=== PATIENT | male | born 1960 | race Caucasian/White ===

== ENCOUNTER 2017-09-24 00:35 | Emergency (ER) | payer BC ==
--- NOTE | 2017-09-24 00:51 | EDM.PDOC ---
ED HPI GENERAL MEDICAL PROBLEM - General Chief Complaint: General Stated Complaint: Depression, anxiety, new meds, not feeling well Time Seen by Provider: 09/24/17 00:51 Source of Information: Reports: Patient, Old Records, RN, RN Notes Reviewed History Limitations: Reports: No Limitations - History of Present Illness INITIAL COMMENTS - FREE TEXT/NARRATIVE: Patient presents to the ED at [facility] concerned about current medications he is taking. Patient was started on Zoloft and Ativan 4 days ago for depression and anxiety. Patient is naive to any psych drugs. He states he "just has not been feeling well" and did have hallucination last night. He states he has been having "weird" dreams since starting the new medications. He feels nauseated and states he has not be able to sleep the last 2 nights. He also complains of bilateral finger cramping but states this has been going on for the past couple of months. Onset: Today - Related Data Allergies Allergy/AdvReac Type Severity Reaction Status Date / Time Penicillins Allergy Rash Verified 09/24/17 00:45 Home Meds: Home Meds Allopurinol [Zyloprim] 300 mg PO DAILY 09/24/17 [History] Aspirin 81 mg PO DAILY 09/24/17 [History] Chlorthalidone 25 mg PO DAILY 09/24/17 [History] Colchicine 0.6 mg PO PRN 09/24/17 [History] Fluticasone Propionate [Flonase] 2 puff INH DAILY 09/24/17 [History] LORazepam [Ativan] 1 mg PO BID 09/24/17 [History] Lisinopril 20 mg PO DAILY 09/24/17 [History] Metoprolol Succinate [Toprol XL 50mg] 50 mg PO DAILY 09/24/17 [History] Montelukast [Singulair] 10 mg PO DAILY 09/24/17 [History] Multivitamin [Multi-Vitamin Daily] 1 tab PO DAILY 09/24/17 [History] Ondansetron [Zofran ODT] 4 mg PO Q6H PRN 09/24/17 [History] Sertraline [Zoloft] 50 mg PO DAILY 09/24/17 [History] Simvastatin [Zocor] 40 mg PO BEDTIME 09/24/17 [History] ED ROS GENERAL - Review of Systems Review Of Systems: See Below Constitutional: Denies: Fever, Chills, Weakness Respiratory: Denies: Shortness of Breath, Cough Cardiovascular: Denies: Chest Pain, Palpitations GI/Abdominal: Reports: Nausea. Denies: Abdominal Pain, Diarrhea, Vomiting Skin: Reports: No Symptoms Neurological: Denies: Dizziness, Headache, Numbness, Paresthesia, Tingling Psychiatric: Reports: Anxiety, Depression, Hallucinations, Mood Lability ED EXAM, GENERAL - Physical Exam Exam: See Below Exam Limited By: No Limitations General Appearance: Alert, No Apparent Distress Respiratory/Chest: No Respiratory Distress, Lungs Clear, Normal Breath Sounds Cardiovascular: Normal Peripheral Pulses, Regular Rate, Rhythm Peripheral Pulses: 2+: Radial (L), Radial (R) GI/Abdominal: Normal Bowel Sounds, Soft, Non-Tender Neurological: Alert, Oriented Psychiatric: Flat Affect, Other (mood stable, no thoughts of suicide; patient appears disappointed in the new medications; he seems to ruminate and fixate on certain aspects of his current symptoms of not feeling well) Skin Exam: Warm, Dry, Intact Course - Vital Signs Last Recorded V/S: Last Vital Signs Temp 36.9 C 09/24/17 00:45 Pulse 72 09/24/17 00:45 Resp 20 09/24/17 00:45 BP 145/88 H 09/24/17 00:45 Pulse Ox 97 09/24/17 00:45 - Orders/Labs/Meds Orders: Active Orders 24 hr Category Date Time Status Zolpidem [Ambien] Med 09/24/17 01:30 Once 10 mg PO ONETIME ONE Meds: Medications Discontinued Medications Generic Name Dose Route Start Last Admin Trade Name Carlin PRN Reason Stop Dose Admin Zolpidem Tartrate 10 mg 09/24/17 01:30 Ambien PO 09/24/17 01:31 ONETIME ONE Departure - Departure Time of Disposition: 01:28 Disposition: Home, Self-Care 01 Condition: Good Clinical Impression: Anxiety and depression, Sleep deprivation - Discharge Information Instructions: Generalized Anxiety Disorder, Adult, Major Depressive Disorder, Adult, [id number], Hypersomnia Referrals: Neetu Levin DO [Physician] - Forms: ED Department Discharge Additional Instructions: 1. Stay well hydrated and rest 2. Will try one Ambien tonight and see how it goes 3. Stop taking Zoloft 4. Continue taking Ativan as prescribed 5. Email or call your PCP to discussed medication changes 6. Call with any questions/concerns - Problem List Review Problem List Initiated/Reviewed/Updated: Yes - My Orders Last 24 Hours: My Active Orders 09/24/17 01:30 Zolpidem [Ambien] 10 mg PO ONETIME ONE - Assessment/Plan Last 24 Hours: My Active Orders 09/24/17 01:30 Zolpidem [Ambien] 10 mg PO ONETIME ONE Assessment:: Depression Anxiety Sleep deprivation Plan: >50% of visit was in counseling patient on depression and anxiety. I feel the patient has a significant amount of sleep deprivation given his current symptoms. I will give patient a one time dose of Ambien. I recommend he visit with his PCP regarding the cramping in his fingers. Long discussion about treatment of depression and anxiety. Patient encourage to use Zofran at home for nausea. Will have patient stop taking Zoloft for now until seen by PCP. Continue with Ativan as prescribed.
[2017-09-24] MEDS ORDERED: Zolpidem 5 MG Tab PO ONE (01:30)
== END 2017-09-24 02:25 | disposition home or self-care (01) ==
LOC: VM.ED 00:35
DX: F41.8 Other specified anxiety disorders (principal); Z72.820 Sleep deprivation; Z88.0 Allergy status to penicillin; Z79.82 Long term (current) use of aspirin; Z79.899 Other long term (current) drug therapy
CPT/HCPCS: 99283; A9270-GY

== ENCOUNTER 2017-11-16 03:39 | Emergency (ER) | payer BC ==
[2017-11-16] MEDS ORDERED: Sodium Chloride 0.9% 10 ML Syringe FLUSH PRN (03:53)
[2017-11-16] MEDS ORDERED: Sodium Chloride 0.9% 1,000 ML IV ONE (03:55)
[2017-11-16 04:43] LABS: CHLORIDE,CL 104 mmol/L (98-107); SODIUM,NA 137 mmol/L (136-145)
--- NOTE | 2017-11-16 04:47 | EDM.PDOC ---
ED HPI GENERAL MEDICAL PROBLEM - General Chief Complaint: General Stated Complaint: tense, unsteady, nausea Time Seen by Provider: 11/16/17 03:45 Source of Information: Reports: Patient History Limitations: Reports: No Limitations - History of Present Illness INITIAL COMMENTS - FREE TEXT/NARRATIVE: Pt. presents to ER with complaints of agitation, muscle pain, fatigue. Pt. states that he was recently found to be hyponatremic and [facility]. He states that he feels similar to how he felt when his sodium was low. Denies any chest pain or shortness of breath. No weakness. No headache. He states that he has some intermittent diarrhea in the past. He denies any abdominal pain, melena, or hematochezia. He denies doing any excessive physical activity recently. Location: Reports: Generalized - Related Data Allergies Allergy/AdvReac Type Severity Reaction Status Date / Time Penicillins Allergy Rash Verified 11/16/17 03:41 Home Meds: Home Meds Allopurinol [Zyloprim] 300 mg PO DAILY 09/24/17 [History] Aspirin 81 mg PO DAILY 09/24/17 [History] Colchicine 0.6 mg PO DAILY PRN 09/24/17 [History] Fluticasone Propionate [Flonase] 2 puff INH DAILY 09/24/17 [History] LORazepam [Ativan] 1 mg PO BID PRN 09/24/17 [History] Lisinopril 20 mg PO DAILY 09/24/17 [History] Metoprolol Succinate [Toprol XL 50mg] 50 mg PO DAILY 09/24/17 [History] Montelukast [Singulair] 10 mg PO DAILY 09/24/17 [History] Ondansetron [Zofran ODT] 4 mg PO Q6H PRN 09/24/17 [History] Simvastatin [Zocor] 40 mg PO BEDTIME 09/24/17 [History] Furosemide 1 tab PO DAILY 11/16/17 [History] Past Medical History HEENT History: Reports: Allergic Rhinitis, Other (See Below) Other HEENT History: seasonal allergies Cardiovascular History: Reports: High Cholesterol, Hypertension Musculoskeletal History: Reports: Gout ED ROS GENERAL - Review of Systems Review Of Systems: See Below Constitutional: Reports: Malaise, Weakness, Fatigue HEENT: Reports: No Symptoms. Denies: Ear Discharge, Ear Pain, Hearing Loss, Rhinitis, Sinus Problem, Throat Pain Respiratory: Reports: No Symptoms Cardiovascular: Reports: No Symptoms. Denies: Chest Pain, Dyspnea on Exertion, Edema, Palpitations Endocrine: Reports: No Symptoms GI/Abdominal: Reports: No Symptoms : Reports: No Symptoms Musculoskeletal: Reports: Joint Pain, Muscle Pain Skin: Reports: No Symptoms Neurological: Reports: No Symptoms Psychiatric: Reports: No Symptoms Hematologic/Lymphatic: Reports: No Symptoms Immunologic: Reports: No Symptoms ED EXAM, GENERAL - Physical Exam Exam: See Below Exam Limited By: No Limitations General Appearance: Alert, WD/WN, No Apparent Distress Eye Exam: Bilateral Eye: EOMI, Normal Fundi, Normal Inspection, PERRL Ears: Normal External Exam, Normal Canal, Hearing Grossly Normal, Normal TMs Ear Exam: Bilateral Ear: TM normal Nose: Normal Inspection, Normal Mucosa, No Blood Throat/Mouth: Normal Inspection, Normal Lips, Normal Teeth, Normal Gums, Normal Oropharynx, Normal Voice, No Airway Compromise Head: Atraumatic, Normocephalic Neck: Normal Inspection, Supple, Non-Tender, Full Range of Motion Respiratory/Chest: No Respiratory Distress, Lungs Clear, Normal Breath Sounds, No Accessory Muscle Use, Chest Non-Tender Cardiovascular: Normal Peripheral Pulses, Regular Rate, Rhythm, No Edema, No Gallop, No JVD, No Murmur, No Rub Peripheral Pulses: 4+: Femoral (L), Femoral (R) GI/Abdominal: Normal Bowel Sounds, Soft, Non-Tender, No Organomegaly, No Distention, No Abnormal Bruit, No Mass (Male) Exam: Deferred Rectal (Males) Exam: Deferred Back Exam: Normal Inspection, Full Range of Motion. No: CVA Tenderness (L), CVA Tenderness (R), Vertebral Tenderness Extremities: Normal Inspection, Normal Range of Motion, Non-Tender, Normal Capillary Refill, No Pedal Edema Neurological: Alert, Oriented, CN II-XII Intact, Normal Cognition, Normal Gait, Normal Reflexes, No Motor/Sensory Deficits Psychiatric: Normal Affect, Normal Mood Skin Exam: Warm, Dry, Intact, Normal Color, No Rash Course - Vital Signs Last Recorded V/S: Last Vital Signs Temp 36.4 C 11/16/17 03:41 Pulse 87 11/16/17 03:41 Resp 18 11/16/17 03:41 BP 161/106 H 11/16/17 04:46 Pulse Ox 98 11/16/17 03:41 - Orders/Labs/Meds Orders: Active Orders 24 hr Category Date Time Status EKG Documentation Completion [RC] STAT Care 11/16/17 03:53 Active UA W/MICROSCOPIC [URIN] Stat Lab 11/16/17 03:53 Ordered WEST NILE VIRUS IGM [REF] Stat Lab 11/16/17 05:00 Ordered Sodium Chloride 0.9% [Saline Flush] Med 11/16/17 03:53 Active 10 ml FLUSH ASDIRECTED PRN Peripheral IV Insertion Adult [OM.PC] Routine Oth 11/16/17 03:54 Ordered Medication Orders Sodium Chloride (Saline Flush) 10 ml FLUSH ASDIRECTED PRN PRN Reason: Keep Vein Open Last Admin: 11/16/17 04:26 Dose: 10 ml Labs: Laboratory Tests 11/16/17 11/16/17 11/16/17 Range/Units 04:08 04:08 04:08 WBC 5.8 (4.0-10.0) x10^3/uL RBC 4.85 (4.5-6.0) x10^6/uL Hgb 15.3 (14.0-18.0) g/dL Hct 44.4 (40.0-52.0) % MCV 91.5 D (78.0-93.0) fL MCH 31.5 (26.0-32.0) pg MCHC 34.5 (32.0-36.0) g/dL RDW Coeff of Stormy 13.4 (10.0-15.0) % Plt Count 228 (130-400) x10^3/uL Neut % (Auto) 47.2 L (50.0-80.0) % Lymph % (Auto) 34.7 (25.0-50.0) % Gillespie % (Auto) 12.4 H (2.0-11.0) % Eos % (Auto) 4.3 H (0.0-4.0) % Baso % (Auto) 1.4 H (0.2-1.2) % PT 9.7 (9.6-11.4) SEC INR 0.9 L (2.0-3.5) Sodium 137 (136-145) mmol/L Potassium 4.1 (3.5-5.1) mmol/L Chloride 104 (98-107) mmol/L Carbon Dioxide 22 (21-32) mmol/L Anion Gap 15.1 (10-20) mmol/L BUN 18 (7-18) mg/dL Creatinine 1.0 (0.70-1.30) mg/dL Est Cr Clr Drug Dosing TNP Estimated GFR (MDRD) > 60 Glucose 127 H (74-106) mg/dL Calcium 8.0 L (8.5-10.1) mg/dL Corrected Calcium 8.64 (8.5-10.1) mg/dL Phosphorus 3.6 (2.6-4.7) mg/dL Magnesium 1.9 (1.8-2.4) mg/dL Total Bilirubin 1.0 (0.2-1.0) mg/dL AST 73 H (15-37) U/L ALT 57 (16-63) U/L Alkaline Phosphatase 67 (46-116) U/L Troponin I < 0.017 (<=0.056) ng/mL C-Reactive Protein < 0.2 (<=0.9) mg/dL NT-Pro-B Natriuret Pep 15 (<=125) pg/mL Total Protein 7.1 (6.4-8.2) g/dL Albumin 3.2 L (3.4-5.0) g/dL Globulin 3.9 Albumin/Globulin Ratio 0.82 TSH, Ultra Sensitive 3.216 (0.358-3.74) uIU/mL Meds: Medications Generic Name Dose Route Start Last Admin Trade Name Freq PRN Reason Stop Dose Admin Sodium Chloride 10 ml 11/16/17 03:53 11/16/17 04:26 Saline Flush FLUSH 10 ml ASDIRECTED PRN Administration Keep Vein Open Discontinued Medications Generic Name Dose Route Start Last Admin Trade Name Freq PRN Reason Stop Dose Admin Sodium Chloride 1,000 mls @ 1,000 mls/hr 11/16/17 03:55 11/16/17 04:11 Normal Saline IV 11/16/17 04:54 1,000 mls/hr .BOLUS ONE Administration Departure - Departure Time of Disposition: 05:15 Disposition: Home, Self-Care 01 Clinical Impression: Viral illness - Discharge Information Instructions: Viral Illness, Adult Referrals: PCP,Unobtain [Primary Care Provider] - Forms: ED Department Discharge Additional Instructions: Home to rest. Follow-up in clinic in 7-10 day. Return to ER if you are having chest pain, shortness of breath, weakness, or confusion. - My Orders Last 24 Hours: My Active Orders 11/16/17 03:53 EKG Documentation Completion [RC] STAT UA W/MICROSCOPIC [URIN] Stat Sodium Chloride 0.9% [Saline Flush] 10 ml FLUSH ASDIRECTED PRN 11/16/17 03:54 Peripheral IV Insertion Adult [OM.PC] Routine 11/16/17 05:00 WEST NILE VIRUS IGM [REF] Stat - Assessment/Plan Last 24 Hours: My Active Orders 11/16/17 03:53 EKG Documentation Completion [RC] STAT UA W/MICROSCOPIC [URIN] Stat Sodium Chloride 0.9% [Saline Flush] 10 ml FLUSH ASDIRECTED PRN 11/16/17 03:54 Peripheral IV Insertion Adult [OM.PC] Routine 11/16/17 05:00 WE[place] N[place] VIRUS IGM [REF] Stat
[2017-11-16 04:55] LABS: ANION GAP 15.1 mmol/L (10-20)
== END 2017-11-16 05:13 | disposition home or self-care (01) ==
LOC: VM.ED 03:39
DX: B34.9 Viral infection, unspecified (principal); I10 Essential (primary) hypertension; Z88.0 Allergy status to penicillin; Z79.82 Long term (current) use of aspirin; Z79.899 Other long term (current) drug therapy
CPT/HCPCS: 36415; 80053; 83735; 83880; 84100; 84443; 84484; 85025; 85610; 86140; 93005; 96360; 99284; J7030; J7050